=== PATIENT | male | born 1955 ===

== ENCOUNTER → 2023-10-17 11:42 | Outpatient (CLI) | payer MEDICARE, SELFPAY ==
--- NOTE | ~2023-10-17 | MR_ITS ---
EXAMINATION: MR knee LT wo con DATE: 10/17/2023 12:21 INDICATION: Left knee pain TECHNIQUE: Magnetic resonance imaging (MRI) of the left knee was performed without intravenous contra st. Sequences included coronal PD-weighted FSE, coronal PD-weighted FS FSE, sagittal T2-weighted FSE , sagittal PD-weighted FS FSE and axial PD weighted fat saturated FSE. COMPARISON: None. FINDINGS: Medial compartment: Complex tear of the posterior horn of the medial meniscus which includes a longitudinal horizontal co mponent extending to the central aspect of the inferior articular surface laterally and extending tow ards the more peripheral inferior articular surface as the tear plane propagates medially. There is a secondary tear plane extending beginning along the free edge at the central body and extending to th e central aspect of the superior articular surface short distance more medially. Focal deep chondral fissuring with minimal underlying subarticular cystlike along the more lateral and anterior weightbea ring medial femoral condyle. Remaining cartilage in the medial compartment is normal. Lateral compartment: Lateral meniscus is normal. Articular cartilage is normal. Patellofemoral compartment: Deep chondral ulceration with subtle underlying cortical irregularity and minimal subarticular edema- like signal change at the medial patellar facet and at the medial trochlea. Deep chondral fissure wit h minimal subarticular edema-like signal change at the patellar apical ridge. Normal cartilage at the lateral trochlea and trochlear groove as well as at the lateral patellar facet. Ligaments and tendons: Anterior and posterior cruciate ligaments are normal. The medial collateral ligament and fibular milo ateral ligament complex are normal. Chronic enthesopathy of the extensor mechanism with prominent ent hesophytes and mild tendinopathy at the patellar and anterior tibial tuberosity insertions of the michelle driceps and patellar tendons. The visualized medial and lateral hamstring tendons as well as the ilio tibial band are normal. Fluid: Small left knee joint effusion. No loose osteochondral bodies identified. Osseous/other: Bone alignment is normal. No fracture or pathologic marrow replacing process. Medial side predominant edema in the superficial suprapatellar fat pad which can be seen with fat pad impingement syndrome. IMPRESSION: 1. Complex tear at the posterior horn of the medial meniscus. 2. 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 3. Mild osteoarthritis with small focus of high-grade chondral malacia the medial compartment. 4. Edema at the superficial suprapatellar fat pad consistent with fat pad impingement syndrome. Reviewed, dictated and finalized at location A. ING LAYER UP IMPRESSION: 1. Complex tear at the posterior horn of the medial meniscus. 2. Severe osteoarthritis is extensive high-grade chondromalacia at the medial s casandra of the patellofemoral articulation. 3. Mild osteoarthritis with small focus of high-grade chondral malacia the medi al compartment. 4. Edema at the superficial suprapatellar fat pad consistent with fat pad impin gement syndrome.
== END ==
PROVIDERS: PCP Orthopaedic Surgery; Visit Provider Orthopaedic Surgery
DX: S83.232A Complex tear of medial meniscus, current injury, left knee, initial encounter (principal); M17.12 Unilateral primary osteoarthritis, left knee; M94.262 Chondromalacia, left knee; M79.4 Hypertrophy of (infrapatellar) fat pad; G89.29 Other chronic pain; X58.XXXA Exposure to other specified factors, initial encounter
CPT/HCPCS: 73721